=== PATIENT | male | born 1965 | race Two or more races ===

== ENCOUNTER 2016-09-07 10:00 | Outpatient (CLI) | payer MEDICARE, MEDICAID ==
[~2016-09-07 10:00] MED LIST: ASPI-605 PO; ATOR20TA PO; CINA60TA PO; INSU100V26 SQ; METO-304 PO; MINO10TA2 PO; NPH,100V8 SQ; OXYC-164 PO; PIPE3.379 IV; RXVAN XX; TEMA15CA PO; VIT1TABL46 PO
== END 2016-09-07 23:59 | disposition home or self-care (01) ==
LOC: WOU 10:00
PROVIDERS: ATTEND Podiatrist Foot & Ankle Surgery
DX: E11.622 Type 2 diabetes mellitus with other skin ulcer (principal); L97.321 Non-pressure chronic ulcer of left ankle limited to breakdown of skin; E11.610 Type 2 diabetes mellitus with diabetic neuropathic arthropathy; E11.22 Type 2 diabetes mellitus with diabetic chronic kidney disease; N18.6 End stage renal disease; Z99.2 Dependence on renal dialysis; T84.117A Breakdown (mechanical) of internal fixation device of bone of left lower leg, initial encounter; M24.372 Pathological dislocation of left ankle, not elsewhere classified; I12.0 Hypertensive chronic kidney disease with stage 5 chronic kidney disease or end stage renal disease; I25.10 Atherosclerotic heart disease of native coronary artery without angina pectoris; Z83.3 Family history of diabetes mellitus; Z82.49 Family history of ischemic heart disease and other diseases of the circulatory system; Z79.899 Other long term (current) drug therapy; Z79.82 Long term (current) use of aspirin; E11.42 Type 2 diabetes mellitus with diabetic polyneuropathy
CPT/HCPCS: 11042; 73610-TC; 73630-TC; A6402

== ENCOUNTER 2016-11-20 10:45 | Outpatient (CLI) | payer MEDICARE, MEDICAID | END 2016-11-20 23:59 | disposition home or self-care (01) | LOC: WOU 10:45 | PROVIDERS: ATTEND Podiatrist Foot & Ankle Surgery | DX: E11.610 Type 2 diabetes mellitus with diabetic neuropathic arthropathy (principal); M84.672A Pathological fracture in other disease, left ankle, initial encounter for fracture; E11.22 Type 2 diabetes mellitus with diabetic chronic kidney disease; I12.0 Hypertensive chronic kidney disease with stage 5 chronic kidney disease or end stage renal disease; N18.6 End stage renal disease; Z99.2 Dependence on renal dialysis; B35.1 Tinea unguium; E11.42 Type 2 diabetes mellitus with diabetic polyneuropathy ==

== ENCOUNTER 2016-11-27 11:50 | Outpatient (CLI) | payer MEDICARE, MEDICAID | END 2016-11-27 23:59 | disposition home or self-care (01) | LOC: WOU 11:50 | PROVIDERS: ATTEND Podiatrist Foot & Ankle Surgery | DX: E11.610 Type 2 diabetes mellitus with diabetic neuropathic arthropathy (principal); E11.42 Type 2 diabetes mellitus with diabetic polyneuropathy; M84.672D Pathological fracture in other disease, left ankle, subsequent encounter for fracture with routine healing; E11.22 Type 2 diabetes mellitus with diabetic chronic kidney disease; I12.0 Hypertensive chronic kidney disease with stage 5 chronic kidney disease or end stage renal disease; N18.6 End stage renal disease; Z99.2 Dependence on renal dialysis; M84.472K Pathological fracture, left ankle, subsequent encounter for fracture with nonunion; Z79.82 Long term (current) use of aspirin | CPT/HCPCS: A6402; G0463 ==

== ENCOUNTER 2016-11-29 13:31 | Outpatient (CLI) | payer MEDICARE, MEDICAID | END 2016-11-29 23:59 | disposition home or self-care (01) | LOC: RAD 13:31 | PROVIDERS: ATTEND Podiatrist Foot & Ankle Surgery | DX: Z75.3 Unavailability and inaccessibility of health-care facilities (principal) ==

== ENCOUNTER 2016-12-07 13:17 | Outpatient (CLI) | payer MEDICARE, MEDICAID | END 2016-12-07 23:59 | disposition home or self-care (01) | LOC: RAD 13:17 | PROVIDERS: ATTEND Podiatrist Foot & Ankle Surgery | DX: S82.892A Other fracture of left lower leg, initial encounter for closed fracture (principal); M24.472 Recurrent dislocation, left ankle; M85.872 Other specified disorders of bone density and structure, left ankle and foot; M25.872 Other specified joint disorders, left ankle and foot; X58.XXXA Exposure to other specified factors, initial encounter; Y93.89 Activity, other specified; Y92.89 Other specified places as the place of occurrence of the external cause; Y99.8 Other external cause status | CPT/HCPCS: 73610-TC ==

== ENCOUNTER 2016-12-26 10:13 | Outpatient (CLI) | payer MEDICARE, MEDICAID | END 2016-12-26 23:59 | disposition home or self-care (01) | LOC: WOU 10:13 | PROVIDERS: ATTEND Podiatrist Foot & Ankle Surgery | DX: Z47.89 Encounter for other orthopedic aftercare (principal); Z98.1 Arthrodesis status; S90.112A Contusion of left great toe without damage to nail, initial encounter; X58.XXXA Exposure to other specified factors, initial encounter; Y92.89 Other specified places as the place of occurrence of the external cause; S82.892S Other fracture of left lower leg, sequela; R60.0 Localized edema | CPT/HCPCS: 10140; 87070; 87075; A6402 ==

== ENCOUNTER 2017-01-02 10:10 | Outpatient (CLI) | payer MEDICARE, MEDICAID | END 2017-01-02 23:59 | disposition home or self-care (01) | LOC: WOU 10:10 | PROVIDERS: ATTEND Podiatrist Foot & Ankle Surgery | DX: Z47.89 Encounter for other orthopedic aftercare (principal); Z98.1 Arthrodesis status; S82.892S Other fracture of left lower leg, sequela; E11.22 Type 2 diabetes mellitus with diabetic chronic kidney disease; E11.610 Type 2 diabetes mellitus with diabetic neuropathic arthropathy; N18.6 End stage renal disease; E11.42 Type 2 diabetes mellitus with diabetic polyneuropathy; Z99.2 Dependence on renal dialysis; M81.0 Age-related osteoporosis without current pathological fracture; R60.0 Localized edema; S90.112D Contusion of left great toe without damage to nail, subsequent encounter; X58.XXXD Exposure to other specified factors, subsequent encounter; Z79.899 Other long term (current) drug therapy | CPT/HCPCS: 29445; A6402 ==

== ENCOUNTER 2017-01-08 13:50 | Outpatient (CLI) | payer MEDICARE, MEDICAID | END 2017-01-08 23:59 | disposition home or self-care (01) | LOC: WOU 13:50 | PROVIDERS: ATTEND Podiatrist Foot & Ankle Surgery | DX: Z09 Encounter for follow-up examination after completed treatment for conditions other than malignant neoplasm (principal); Z98.1 Arthrodesis status; R60.0 Localized edema; S82.892S Other fracture of left lower leg, sequela; X58.XXXS Exposure to other specified factors, sequela; E11.22 Type 2 diabetes mellitus with diabetic chronic kidney disease; N18.6 End stage renal disease; Z99.2 Dependence on renal dialysis; E11.42 Type 2 diabetes mellitus with diabetic polyneuropathy; M81.0 Age-related osteoporosis without current pathological fracture; E11.610 Type 2 diabetes mellitus with diabetic neuropathic arthropathy; Z79.899 Other long term (current) drug therapy; Z79.82 Long term (current) use of aspirin | CPT/HCPCS: A6402; G0463 ==

== ENCOUNTER 2017-01-22 14:30 | Outpatient (CLI) | payer MEDICARE, MEDICAID | END 2017-01-22 23:59 | disposition home or self-care (01) | LOC: WOU 14:30 | PROVIDERS: ATTEND Podiatrist Foot & Ankle Surgery | DX: E11.610 Type 2 diabetes mellitus with diabetic neuropathic arthropathy (principal); E11.22 Type 2 diabetes mellitus with diabetic chronic kidney disease; I12.0 Hypertensive chronic kidney disease with stage 5 chronic kidney disease or end stage renal disease; N18.6 End stage renal disease; Z99.2 Dependence on renal dialysis; Z79.82 Long term (current) use of aspirin; E11.65 Type 2 diabetes mellitus with hyperglycemia; E11.42 Type 2 diabetes mellitus with diabetic polyneuropathy; Z89.431 Acquired absence of right foot; M81.0 Age-related osteoporosis without current pathological fracture; I25.10 Atherosclerotic heart disease of native coronary artery without angina pectoris; M24.672 Ankylosis, left ankle | CPT/HCPCS: 29445; A6253; A6402 ==

== ENCOUNTER 2017-01-31 11:21 | Outpatient (CLI) | payer MEDICARE, MEDICAID | END 2017-01-31 23:59 | disposition home or self-care (01) | LOC: RAD 11:21 | PROVIDERS: ATTEND Podiatrist Foot & Ankle Surgery | DX: M24.672 Ankylosis, left ankle (principal); M85.872 Other specified disorders of bone density and structure, left ankle and foot; Z98.890 Other specified postprocedural states; Z98.1 Arthrodesis status; Z87.81 Personal history of (healed) traumatic fracture | CPT/HCPCS: 73610-TC ==

== ENCOUNTER 2017-02-01 12:35 | Outpatient (CLI) | payer MEDICARE, MEDICAID | END 2017-02-01 23:59 | disposition home or self-care (01) | LOC: WOU 12:35 | PROVIDERS: ATTEND Podiatrist Foot & Ankle Surgery | DX: E11.622 Type 2 diabetes mellitus with other skin ulcer (principal); L97.329 Non-pressure chronic ulcer of left ankle with unspecified severity; L60.0 Ingrowing nail; R60.0 Localized edema; M24.672 Ankylosis, left ankle; E11.42 Type 2 diabetes mellitus with diabetic polyneuropathy; E11.22 Type 2 diabetes mellitus with diabetic chronic kidney disease; N18.6 End stage renal disease; Z99.2 Dependence on renal dialysis; M81.0 Age-related osteoporosis without current pathological fracture; Z89.431 Acquired absence of right foot; E11.65 Type 2 diabetes mellitus with hyperglycemia; Z98.890 Other specified postprocedural states | CPT/HCPCS: 11730; 29445; A6253 ==

== ENCOUNTER 2017-02-08 09:39 | Outpatient (CLI) | payer MEDICARE, MEDICAID | END 2017-02-08 23:59 | disposition home or self-care (01) | LOC: WOU 09:39 | PROVIDERS: ATTEND Podiatrist Foot & Ankle Surgery | DX: R60.0 Localized edema (principal); X58.XXXD Exposure to other specified factors, subsequent encounter; S82.892E Other fracture of left lower leg, subsequent encounter for open fracture type I or II with routine healing; M24.672 Ankylosis, left ankle; E11.42 Type 2 diabetes mellitus with diabetic polyneuropathy; E11.22 Type 2 diabetes mellitus with diabetic chronic kidney disease; N18.6 End stage renal disease; Z99.2 Dependence on renal dialysis; Z89.431 Acquired absence of right foot ==

== ENCOUNTER 2017-02-19 10:25 | Outpatient (CLI) | payer MEDICARE, MEDICAID | END 2017-02-19 23:59 | disposition home or self-care (01) | LOC: WOU 10:25 | PROVIDERS: ATTEND Podiatrist Foot & Ankle Surgery | DX: E11.622 Type 2 diabetes mellitus with other skin ulcer (principal); L97.911 Non-pressure chronic ulcer of unspecified part of right lower leg limited to breakdown of skin; E11.42 Type 2 diabetes mellitus with diabetic polyneuropathy; E11.22 Type 2 diabetes mellitus with diabetic chronic kidney disease; I12.0 Hypertensive chronic kidney disease with stage 5 chronic kidney disease or end stage renal disease; N18.6 End stage renal disease; Z99.2 Dependence on renal dialysis; M24.672 Ankylosis, left ankle; R60.0 Localized edema; Z79.4 Long term (current) use of insulin; Z79.899 Other long term (current) drug therapy; Z79.82 Long term (current) use of aspirin; E11.65 Type 2 diabetes mellitus with hyperglycemia; M81.0 Age-related osteoporosis without current pathological fracture; Z89.431 Acquired absence of right foot | CPT/HCPCS: A6209; A6402; G0463 ==

== ENCOUNTER 2017-03-01 10:08 | Outpatient (CLI) | payer MEDICARE, MEDICAID | END 2017-03-01 23:59 | disposition home or self-care (01) | LOC: WOU 10:08 | PROVIDERS: ATTEND Podiatrist Foot & Ankle Surgery | DX: E11.22 Type 2 diabetes mellitus with diabetic chronic kidney disease (principal); E11.65 Type 2 diabetes mellitus with hyperglycemia; E11.610 Type 2 diabetes mellitus with diabetic neuropathic arthropathy; N18.6 End stage renal disease; E11.42 Type 2 diabetes mellitus with diabetic polyneuropathy; Z99.2 Dependence on renal dialysis; Z89.431 Acquired absence of right foot; Z79.4 Long term (current) use of insulin; Z79.899 Other long term (current) drug therapy; R60.0 Localized edema; M24.672 Ankylosis, left ankle; L03.90 Cellulitis, unspecified | CPT/HCPCS: 29445; A6402 ==

== ENCOUNTER 2017-04-05 10:30 | Outpatient (CLI) | payer MEDICARE, MEDICAID | END 2017-04-05 23:59 | disposition home or self-care (01) | LOC: WOU 10:30 | PROVIDERS: ATTEND Podiatrist Foot & Ankle Surgery | DX: E11.610 Type 2 diabetes mellitus with diabetic neuropathic arthropathy (principal); M24.672 Ankylosis, left ankle; Z89.431 Acquired absence of right foot; L84 Corns and callosities; B35.1 Tinea unguium; R60.0 Localized edema; E11.22 Type 2 diabetes mellitus with diabetic chronic kidney disease; N18.6 End stage renal disease; Z99.2 Dependence on renal dialysis; Z79.4 Long term (current) use of insulin; M81.0 Age-related osteoporosis without current pathological fracture | CPT/HCPCS: G0463 ==

== ENCOUNTER 2017-06-04 12:56 | Outpatient (CLI) | payer MEDICARE, MEDICAID ==
[~2017-06-04 12:56] MED LIST changes: -INSU100V26 SQ; +INSU100V30 SQ; -METO-304 PO; +METO-357 PO; -NPH,100V8 SQ; +NPH.100V2 SQ
== END 2017-06-04 23:59 | disposition home or self-care (01) ==
LOC: WOU 12:56
PROVIDERS: ATTEND Podiatrist Foot & Ankle Surgery
DX: E11.621 Type 2 diabetes mellitus with foot ulcer (principal); L97.412 Non-pressure chronic ulcer of right heel and midfoot with fat layer exposed; E11.610 Type 2 diabetes mellitus with diabetic neuropathic arthropathy; Z79.4 Long term (current) use of insulin; M21.6X1 Other acquired deformities of right foot; E11.22 Type 2 diabetes mellitus with diabetic chronic kidney disease; I12.0 Hypertensive chronic kidney disease with stage 5 chronic kidney disease or end stage renal disease; N18.6 End stage renal disease; Z99.2 Dependence on renal dialysis; E11.42 Type 2 diabetes mellitus with diabetic polyneuropathy; M81.0 Age-related osteoporosis without current pathological fracture; I25.10 Atherosclerotic heart disease of native coronary artery without angina pectoris
CPT/HCPCS: 11042; A6402

== ENCOUNTER 2017-06-05 11:33 | Outpatient (CLI) | payer MEDICARE, MEDICAID | END 2017-06-05 23:59 | disposition home or self-care (01) | LOC: CT 11:33 | PROVIDERS: ATTEND Podiatrist Foot & Ankle Surgery | DX: M62.572 Muscle wasting and atrophy, not elsewhere classified, left ankle and foot (principal); M85.68 Other cyst of bone, other site; I70.0 Atherosclerosis of aorta; M25.475 Effusion, left foot; M21.962 Unspecified acquired deformity of left lower leg; Z98.1 Arthrodesis status; Z98.890 Other specified postprocedural states | CPT/HCPCS: 73600-TC; 73620-TC; 73700-TC ==

== ENCOUNTER 2017-07-19 10:40 | Outpatient (CLI) | payer MEDICARE, MEDICAID | END 2017-07-19 23:59 | disposition home or self-care (01) | LOC: WOU 10:40 | PROVIDERS: ATTEND Podiatrist Foot & Ankle Surgery | DX: E11.622 Type 2 diabetes mellitus with other skin ulcer (principal); L97.322 Non-pressure chronic ulcer of left ankle with fat layer exposed; Z86.31 Personal history of diabetic foot ulcer; E11.42 Type 2 diabetes mellitus with diabetic polyneuropathy; Z99.3 Dependence on wheelchair; E11.22 Type 2 diabetes mellitus with diabetic chronic kidney disease; N18.6 End stage renal disease; Z99.2 Dependence on renal dialysis; Z79.4 Long term (current) use of insulin; M81.0 Age-related osteoporosis without current pathological fracture; M24.672 Ankylosis, left ankle | CPT/HCPCS: 11042; A6402 ==

== ENCOUNTER 2017-09-20 11:00 | Outpatient (CLI) | payer MEDICARE, MEDICAID ==
[~2017-09-20 11:00] MED LIST changes: -OXYC-164 PO; +OXYC-454 PO
== END 2017-09-20 23:59 | disposition home or self-care (01) ==
LOC: WOU 11:00
PROVIDERS: ATTEND Podiatrist Foot & Ankle Surgery
DX: E11.610 Type 2 diabetes mellitus with diabetic neuropathic arthropathy (principal); E11.42 Type 2 diabetes mellitus with diabetic polyneuropathy; E11.22 Type 2 diabetes mellitus with diabetic chronic kidney disease; N18.6 End stage renal disease; Z99.2 Dependence on renal dialysis; Z79.4 Long term (current) use of insulin; R60.9 Edema, unspecified; R26.9 Unspecified abnormalities of gait and mobility; Z89.431 Acquired absence of right foot; B35.1 Tinea unguium; Z86.31 Personal history of diabetic foot ulcer; Z99.3 Dependence on wheelchair
CPT/HCPCS: G0463

== ENCOUNTER 2017-12-24 11:09 | Outpatient (CLI) | payer MEDICARE, MEDICAID | END 2017-12-24 23:59 | disposition home or self-care (01) | LOC: WOU 11:09 | PROVIDERS: ATTEND Podiatrist Foot & Ankle Surgery | DX: E11.622 Type 2 diabetes mellitus with other skin ulcer (principal); L97.322 Non-pressure chronic ulcer of left ankle with fat layer exposed; L97.326 Non-pressure chronic ulcer of left ankle with bone involvement without evidence of necrosis; E11.610 Type 2 diabetes mellitus with diabetic neuropathic arthropathy; Z79.4 Long term (current) use of insulin; E11.22 Type 2 diabetes mellitus with diabetic chronic kidney disease; I12.0 Hypertensive chronic kidney disease with stage 5 chronic kidney disease or end stage renal disease; N18.6 End stage renal disease; Z99.2 Dependence on renal dialysis; T84.89XS Other specified complication of internal orthopedic prosthetic devices, implants and grafts, sequela; Z89.431 Acquired absence of right foot; R20.8 Other disturbances of skin sensation; Z79.891 Long term (current) use of opiate analgesic | CPT/HCPCS: 11042; 11044; 11047; A6402; A6407; Z7610 ==

== ENCOUNTER 2017-12-27 10:50 | Outpatient (CLI) | payer MEDICARE, MEDICAID | END 2017-12-27 23:59 | disposition home or self-care (01) | LOC: WOU 10:50 | PROVIDERS: ATTEND Podiatrist Foot & Ankle Surgery | DX: T81.89XA Other complications of procedures, not elsewhere classified, initial encounter (principal); S82.892K Other fracture of left lower leg, subsequent encounter for closed fracture with nonunion; X58.XXXD Exposure to other specified factors, subsequent encounter; E11.22 Type 2 diabetes mellitus with diabetic chronic kidney disease; E11.65 Type 2 diabetes mellitus with hyperglycemia; N18.6 End stage renal disease; Z99.2 Dependence on renal dialysis; Z79.82 Long term (current) use of aspirin; Z79.4 Long term (current) use of insulin; E11.69 Type 2 diabetes mellitus with other specified complication; M86.8X7 Other osteomyelitis, ankle and foot; E11.610 Type 2 diabetes mellitus with diabetic neuropathic arthropathy; I25.10 Atherosclerotic heart disease of native coronary artery without angina pectoris | CPT/HCPCS: 11042; 11044; 11047; A6402; A6407; Z7610 ==

== ENCOUNTER 2018-01-01 10:24 | Outpatient (CLI) | payer MEDICARE, MEDICAID | END 2018-01-01 23:59 | disposition home or self-care (01) | LOC: WOU 10:24 | PROVIDERS: ATTEND Podiatrist Foot & Ankle Surgery | DX: T81.31XA Disruption of external operation (surgical) wound, not elsewhere classified, initial encounter (principal); E11.42 Type 2 diabetes mellitus with diabetic polyneuropathy; E11.622 Type 2 diabetes mellitus with other skin ulcer; E11.22 Type 2 diabetes mellitus with diabetic chronic kidney disease; N18.6 End stage renal disease; Z99.2 Dependence on renal dialysis; Z79.4 Long term (current) use of insulin; L97.326 Non-pressure chronic ulcer of left ankle with bone involvement without evidence of necrosis; E11.610 Type 2 diabetes mellitus with diabetic neuropathic arthropathy; Z89.431 Acquired absence of right foot | CPT/HCPCS: 11044; 11047; A6402; A6407; Z7610 ==

== ENCOUNTER 2018-01-17 10:23 | Outpatient (CLI) | payer MEDICARE, MEDICAID | END 2018-01-17 23:59 | disposition home or self-care (01) | LOC: WOU 10:23 | PROVIDERS: ATTEND Podiatrist Foot & Ankle Surgery | DX: T81.89XA Other complications of procedures, not elsewhere classified, initial encounter (principal); E11.610 Type 2 diabetes mellitus with diabetic neuropathic arthropathy; E11.42 Type 2 diabetes mellitus with diabetic polyneuropathy; T84.84XD Pain due to internal orthopedic prosthetic devices, implants and grafts, subsequent encounter; E11.622 Type 2 diabetes mellitus with other skin ulcer; E11.65 Type 2 diabetes mellitus with hyperglycemia; E11.22 Type 2 diabetes mellitus with diabetic chronic kidney disease; N18.6 End stage renal disease; Z99.2 Dependence on renal dialysis; Z79.4 Long term (current) use of insulin; Z79.82 Long term (current) use of aspirin; I25.10 Atherosclerotic heart disease of native coronary artery without angina pectoris | CPT/HCPCS: 11044; 11047 ×2; A6402 ×2; A6407; Z7610 ==

== ENCOUNTER 2018-01-21 11:15 | Outpatient (CLI) | payer MEDICARE, MEDICAID | END 2018-01-21 23:59 | disposition home or self-care (01) | LOC: WOU 11:15 | PROVIDERS: ATTEND Podiatrist Foot & Ankle Surgery | DX: E11.622 Type 2 diabetes mellitus with other skin ulcer (principal); L97.326 Non-pressure chronic ulcer of left ankle with bone involvement without evidence of necrosis; E11.610 Type 2 diabetes mellitus with diabetic neuropathic arthropathy; E11.42 Type 2 diabetes mellitus with diabetic polyneuropathy; E11.22 Type 2 diabetes mellitus with diabetic chronic kidney disease; N18.6 End stage renal disease; Z99.2 Dependence on renal dialysis; Z79.4 Long term (current) use of insulin; Z98.1 Arthrodesis status; Z79.82 Long term (current) use of aspirin; Z79.891 Long term (current) use of opiate analgesic | CPT/HCPCS: 11044; 11047; A6402 ×2; A6407 ×2; Z7610 ×2 ==

== ENCOUNTER 2018-01-31 10:30 | Outpatient (CLI) | payer MEDICARE, MEDICAID | END 2018-01-31 23:59 | disposition home or self-care (01) | LOC: WOU 10:30 | PROVIDERS: ATTEND Podiatrist Foot & Ankle Surgery | DX: Z47.89 Encounter for other orthopedic aftercare (principal); E11.22 Type 2 diabetes mellitus with diabetic chronic kidney disease; N18.6 End stage renal disease; Z99.2 Dependence on renal dialysis; E11.65 Type 2 diabetes mellitus with hyperglycemia; Z79.4 Long term (current) use of insulin; E11.610 Type 2 diabetes mellitus with diabetic neuropathic arthropathy; E11.42 Type 2 diabetes mellitus with diabetic polyneuropathy; E11.622 Type 2 diabetes mellitus with other skin ulcer; L97.324 Non-pressure chronic ulcer of left ankle with necrosis of bone | CPT/HCPCS: 11044; 11047; A6402; A6407; Z7610 ==

== ENCOUNTER 2018-02-05 12:32 | Outpatient (CLI) | payer MEDICARE, MEDICAID | END 2018-02-05 23:59 | disposition home or self-care (01) | LOC: WOU 12:32 | PROVIDERS: ATTEND Podiatrist Foot & Ankle Surgery | DX: T81.89XA Other complications of procedures, not elsewhere classified, initial encounter (principal); E11.22 Type 2 diabetes mellitus with diabetic chronic kidney disease; E11.65 Type 2 diabetes mellitus with hyperglycemia; N18.6 End stage renal disease; Z99.2 Dependence on renal dialysis; Z79.4 Long term (current) use of insulin; E11.610 Type 2 diabetes mellitus with diabetic neuropathic arthropathy; E11.42 Type 2 diabetes mellitus with diabetic polyneuropathy; M84.472K Pathological fracture, left ankle, subsequent encounter for fracture with nonunion | CPT/HCPCS: 11043; A6402; A6407; Z7610 ==

== ENCOUNTER 2018-02-14 09:50 | Outpatient (CLI) | payer MEDICARE, MEDICAID | END 2018-02-14 23:59 | disposition home or self-care (01) | LOC: WOU 09:50 | PROVIDERS: ATTEND Podiatrist Foot & Ankle Surgery | DX: T81.89XA Other complications of procedures, not elsewhere classified, initial encounter (principal); E11.621 Type 2 diabetes mellitus with foot ulcer; L97.522 Non-pressure chronic ulcer of other part of left foot with fat layer exposed; E11.610 Type 2 diabetes mellitus with diabetic neuropathic arthropathy; R60.0 Localized edema; I25.10 Atherosclerotic heart disease of native coronary artery without angina pectoris; E11.22 Type 2 diabetes mellitus with diabetic chronic kidney disease; N18.6 End stage renal disease; Z99.2 Dependence on renal dialysis; E11.40 Type 2 diabetes mellitus with diabetic neuropathy, unspecified; Z79.4 Long term (current) use of insulin; Z79.82 Long term (current) use of aspirin; E11.65 Type 2 diabetes mellitus with hyperglycemia; Z89.431 Acquired absence of right foot | CPT/HCPCS: 11044; 11047; A6402; A6407; Z7610 ==

== ENCOUNTER 2018-02-28 11:26 | Outpatient (CLI) | payer MEDICARE, MEDICAID | END 2018-02-28 23:59 | disposition home or self-care (01) | LOC: WOU 11:26 | PROVIDERS: ATTEND Podiatrist Foot & Ankle Surgery | DX: E11.621 Type 2 diabetes mellitus with foot ulcer (principal); L97.528 Non-pressure chronic ulcer of other part of left foot with other specified severity; T81.89XA Other complications of procedures, not elsewhere classified, initial encounter; E11.610 Type 2 diabetes mellitus with diabetic neuropathic arthropathy; E11.69 Type 2 diabetes mellitus with other specified complication; M86.8X7 Other osteomyelitis, ankle and foot; E11.22 Type 2 diabetes mellitus with diabetic chronic kidney disease; N18.6 End stage renal disease; Z99.2 Dependence on renal dialysis; Z79.4 Long term (current) use of insulin; E11.42 Type 2 diabetes mellitus with diabetic polyneuropathy; I25.10 Atherosclerotic heart disease of native coronary artery without angina pectoris | CPT/HCPCS: 11043; A6402; A6407; Z7610 ==

== ENCOUNTER 2018-03-07 10:29 | Outpatient (CLI) | payer MEDICARE, MEDICAID | END 2018-03-07 23:59 | disposition home or self-care (01) | LOC: WOU 10:29 | PROVIDERS: ATTEND Podiatrist Foot & Ankle Surgery | DX: T81.31XA Disruption of external operation (surgical) wound, not elsewhere classified, initial encounter (principal); E11.610 Type 2 diabetes mellitus with diabetic neuropathic arthropathy; L97.323 Non-pressure chronic ulcer of left ankle with necrosis of muscle; E11.22 Type 2 diabetes mellitus with diabetic chronic kidney disease; N18.6 End stage renal disease; Z99.2 Dependence on renal dialysis; M81.0 Age-related osteoporosis without current pathological fracture; E11.42 Type 2 diabetes mellitus with diabetic polyneuropathy; E11.69 Type 2 diabetes mellitus with other specified complication; M86.672 Other chronic osteomyelitis, left ankle and foot; E11.65 Type 2 diabetes mellitus with hyperglycemia; E11.622 Type 2 diabetes mellitus with other skin ulcer; Z79.4 Long term (current) use of insulin; M84.6 Pathological fracture in other disease | CPT/HCPCS: 11043; A6402 ×2; Z7610 ==

== ENCOUNTER 2018-03-19 12:00 | Outpatient (CLI) | payer MEDICARE, MEDICAID | END 2018-03-19 23:59 | disposition home or self-care (01) | LOC: WOU 12:00 | PROVIDERS: ATTEND Podiatrist Foot & Ankle Surgery | DX: T81.31XA Disruption of external operation (surgical) wound, not elsewhere classified, initial encounter (principal); E11.610 Type 2 diabetes mellitus with diabetic neuropathic arthropathy; E11.42 Type 2 diabetes mellitus with diabetic polyneuropathy; L97.323 Non-pressure chronic ulcer of left ankle with necrosis of muscle; E11.69 Type 2 diabetes mellitus with other specified complication; M86.672 Other chronic osteomyelitis, left ankle and foot; E11.22 Type 2 diabetes mellitus with diabetic chronic kidney disease; N18.6 End stage renal disease; Z99.2 Dependence on renal dialysis; Z89.431 Acquired absence of right foot; M84.47 Pathological fracture, ankle, foot and toes | CPT/HCPCS: 11043; A6402; Z7610 ==

== ENCOUNTER 2018-04-02 11:55 | Outpatient (CLI) | payer MEDICARE, MEDICAID | END 2018-04-02 23:59 | disposition home or self-care (01) | LOC: WOU 11:55 | PROVIDERS: ATTEND Podiatrist Foot & Ankle Surgery | DX: E11.610 Type 2 diabetes mellitus with diabetic neuropathic arthropathy (principal); E11.622 Type 2 diabetes mellitus with other skin ulcer; L97.322 Non-pressure chronic ulcer of left ankle with fat layer exposed; E11.42 Type 2 diabetes mellitus with diabetic polyneuropathy; E11.22 Type 2 diabetes mellitus with diabetic chronic kidney disease; N18.6 End stage renal disease; Z99.2 Dependence on renal dialysis; Z79.4 Long term (current) use of insulin; I25.10 Atherosclerotic heart disease of native coronary artery without angina pectoris; M84.472K Pathological fracture, left ankle, subsequent encounter for fracture with nonunion | CPT/HCPCS: 11042; A6402; Z7610 ==

== ENCOUNTER 2018-05-28 12:40 | Outpatient (CLI) | payer MEDICARE, MEDICAID | END 2018-05-28 23:59 | disposition home or self-care (01) | LOC: WOU 12:40 | PROVIDERS: ATTEND Podiatrist Foot & Ankle Surgery | DX: E11.610 Type 2 diabetes mellitus with diabetic neuropathic arthropathy (principal); E11.42 Type 2 diabetes mellitus with diabetic polyneuropathy; Z89.431 Acquired absence of right foot; E11.65 Type 2 diabetes mellitus with hyperglycemia; Z99.3 Dependence on wheelchair; M84.672K Pathological fracture in other disease, left ankle, subsequent encounter for fracture with nonunion; M96.0 Pseudarthrosis after fusion or arthrodesis; E11.22 Type 2 diabetes mellitus with diabetic chronic kidney disease; N18.6 End stage renal disease; Z99.2 Dependence on renal dialysis; I25.10 Atherosclerotic heart disease of native coronary artery without angina pectoris; Z79.4 Long term (current) use of insulin; Z79.82 Long term (current) use of aspirin | CPT/HCPCS: G0463; Z7610 ==

== ENCOUNTER 2019-03-25 13:24 | Outpatient (CLI) | payer MEDICARE, MEDICAID | END 2019-03-25 23:59 | disposition home or self-care (01) | LOC: WOU 13:24 | PROVIDERS: ATTEND Podiatrist Foot & Ankle Surgery | DX: M96.0 Pseudarthrosis after fusion or arthrodesis (principal); E11.610 Type 2 diabetes mellitus with diabetic neuropathic arthropathy; E11.42 Type 2 diabetes mellitus with diabetic polyneuropathy; Z89.431 Acquired absence of right foot; Z79.4 Long term (current) use of insulin; E11.22 Type 2 diabetes mellitus with diabetic chronic kidney disease; I12.0 Hypertensive chronic kidney disease with stage 5 chronic kidney disease or end stage renal disease; N18.6 End stage renal disease; Z99.2 Dependence on renal dialysis | CPT/HCPCS: G0463 ==

== ENCOUNTER 2021-09-15 10:25 | Outpatient (CLI) | payer MEDICARE, OTHER ==
[~2021-09-15 10:25] MED LIST changes: -OXYC-454 PO; +OXYC1TAB12 PO
== END 2021-09-15 23:59 | disposition home or self-care (01) ==
LOC: WOU 10:25
PROVIDERS: ATTEND Podiatrist Foot & Ankle Surgery
DX: E11.610 Type 2 diabetes mellitus with diabetic neuropathic arthropathy (principal); E11.42 Type 2 diabetes mellitus with diabetic polyneuropathy; M96.0 Pseudarthrosis after fusion or arthrodesis; B35.1 Tinea unguium; R60.0 Localized edema; Z99.3 Dependence on wheelchair; Z79.4 Long term (current) use of insulin; Z79.82 Long term (current) use of aspirin
CPT/HCPCS: 73600; G0463

== ENCOUNTER → 2021-09-29 | Outpatient (CLI) | payer MEDICARE, OTHER | END | disposition home or self-care (01) | LOC: CT 09:19 | PROVIDERS: ATTEND Podiatrist Foot & Ankle Surgery | DX: S93.05XA Dislocation of left ankle joint, initial encounter (principal); M85.872 Other specified disorders of bone density and structure, left ankle and foot; M62.572 Muscle wasting and atrophy, not elsewhere classified, left ankle and foot; M79.89 Other specified soft tissue disorders; A52.16 Charcot's arthropathy (tabetic); X58.XXXA Exposure to other specified factors, initial encounter; Y93.89 Activity, other specified; Y92.89 Other specified places as the place of occurrence of the external cause; Y99.8 Other external cause status | CPT/HCPCS: 73700-TC ==

== ENCOUNTER 2021-10-27 10:20 | Outpatient (CLI) | payer MEDICARE, OTHER ==
[2021-10-27] MEDS ORDERED: CADEXOMER IODINE UD 5 GM TUBE ONE (12:12)
== END 2021-10-27 23:59 | disposition home or self-care (01) ==
LOC: WOU 10:20
PROVIDERS: ATTEND Podiatrist Foot & Ankle Surgery
DX: E11.621 Type 2 diabetes mellitus with foot ulcer (principal); L97.512 Non-pressure chronic ulcer of other part of right foot with fat layer exposed; L97.418 Non-pressure chronic ulcer of right heel and midfoot with other specified severity; E11.610 Type 2 diabetes mellitus with diabetic neuropathic arthropathy; E11.42 Type 2 diabetes mellitus with diabetic polyneuropathy; E11.22 Type 2 diabetes mellitus with diabetic chronic kidney disease; I12.0 Hypertensive chronic kidney disease with stage 5 chronic kidney disease or end stage renal disease; N18.6 End stage renal disease; Z99.2 Dependence on renal dialysis; Z79.4 Long term (current) use of insulin; M96.0 Pseudarthrosis after fusion or arthrodesis; M25.372 Other instability, left ankle; Z79.82 Long term (current) use of aspirin; Z89.431 Acquired absence of right foot
CPT/HCPCS: 11042

== ENCOUNTER 2021-11-10 10:30 | Outpatient (CLI) | payer MEDICARE, OTHER | END 2021-11-10 23:59 | disposition home or self-care (01) | LOC: WOU 10:30 | PROVIDERS: ATTEND Podiatrist Foot & Ankle Surgery | DX: E11.621 Type 2 diabetes mellitus with foot ulcer (principal); L97.412 Non-pressure chronic ulcer of right heel and midfoot with fat layer exposed; E11.610 Type 2 diabetes mellitus with diabetic neuropathic arthropathy; E11.42 Type 2 diabetes mellitus with diabetic polyneuropathy; M96.0 Pseudarthrosis after fusion or arthrodesis; M25.372 Other instability, left ankle; Z89.431 Acquired absence of right foot; Z79.4 Long term (current) use of insulin; Z79.82 Long term (current) use of aspirin | CPT/HCPCS: 11042 ==

== ENCOUNTER 2022-11-30 09:17 | Outpatient (CLI) | payer MEDICARE, OTHER | END 2022-11-30 23:59 | disposition home or self-care (01) | LOC: WOU 09:17 | PROVIDERS: ATTEND Podiatrist Foot & Ankle Surgery | DX: S93.05XA Dislocation of left ankle joint, initial encounter (principal); X58.XXXA Exposure to other specified factors, initial encounter; Y92.89 Other specified places as the place of occurrence of the external cause; E11.610 Type 2 diabetes mellitus with diabetic neuropathic arthropathy; E11.42 Type 2 diabetes mellitus with diabetic polyneuropathy; E11.22 Type 2 diabetes mellitus with diabetic chronic kidney disease; I12.0 Hypertensive chronic kidney disease with stage 5 chronic kidney disease or end stage renal disease; N18.6 End stage renal disease; Z99.2 Dependence on renal dialysis; Z79.4 Long term (current) use of insulin; Z89.421 Acquired absence of other right toe(s); Z79.82 Long term (current) use of aspirin | CPT/HCPCS: 73600-TC ==